=== PATIENT | female | born 1985 | race Caucasian/White ===

== ENCOUNTER 2018-02-22 12:43 | Outpatient (CLI) | payer BC ==
[~2018-02-22] VITALS: Ht 160 cm; Wt 62.7 kg
[2018-02-22 13:13] VITALS: BP 110/68
== END 2018-02-22 13:35 | disposition home or self-care (01) ==
LOC: LDOP 12:43
PROVIDERS: ATTEND Obstetrics & Gynecology Gynecology
DX: O26.893 Other specified pregnancy related conditions, third trimester (principal); Z3A.29 29 weeks gestation of pregnancy; W19.XXXA Unspecified fall, initial encounter; Y93.89 Activity, other specified; Y92.89 Other specified places as the place of occurrence of the external cause; Y99.8 Other external cause status
CPT/HCPCS: 59025; 99201; G0463

== ENCOUNTER 2018-03-28 16:30 | Outpatient (CLI) | payer BC ==
[~2018-03-28] VITALS: Ht 160 cm; Wt 64.4 kg
[2018-03-28] MEDS ORDERED: ONDANSETRON 2MG/ML, 2ML IVPush ONE (17:30)
[2018-03-28] MEDS ORDERED: PLEASE ENTER HEIGHT AND WEIGHT MC SCH (17:30)
[2018-03-28] MEDS ORDERED: LACTATED RINGERS 1,000 ML IVBOLUS ONE ×2 (17:30→19:30)
[2018-03-28] MEDS ORDERED: ONDANSETRON 2MG/ML, 2ML ONE (17:50)
[2018-03-28 18:14] LABS: BASOPHILS % (AUTO) 0 % (0-1); EOSINOPHILS % (AUTO) 0 % (1-7); LYMPHOCYTES # (AUTO) 0.46 x10^3/uL (1-3.4); LYMPHOCYTES % (AUTO) 4 % (22-44); MD NO; MEAN CORPUSCULAR HEMOGLOBIN 31.6 pg (27.0-34.8); MEAN CORPUSCULAR HGB CONC 33.7 g/dL (32.4-35.8); MEAN CORPUSCULAR VOLUME 93.6 fL (80-100); MEAN PLATELET VOLUME 10.6 fL (7.4-10.4); MONOCYTES # (AUTO) 0.49 x10^3/uL (0.2-0.8); MONOCYTES % (AUTO) 5 % (2-9); NEUTROPHILS # (AUTO) 9.32 x10^3/uL (1.8-6.8); NEUTROPHILS % (AUTO) 91 % (42-75); PLATELET COUNT 178 x10^3/uL (130-400); RED BLOOD COUNT 4.13 x10^6/uL (3.82-5.3); RED CELL DISTRIBUTION WIDTH 12.9 % (9.6-15.2)
[2018-03-28 18:27] LABS: ALANINE AMINOTRANSFERASE 21 U/L (12-78); ALBUMIN 2.6 g/dL (3.4-5.0); ANION GAP 5 mmol/L (5-15); CALCIUM 8.3 mg/dL (8.5-10.1); CHLORIDE 104 mmol/L (98-107); CREATININE 0.87 mg/dL (0.55-1.02)
[2018-03-28 18:29] LABS: ALKALINE PHOSPHATASE 105 U/L (45-117); BILIRUBIN,TOTAL 0.3 mg/dL (0.2-1.0); TOTAL PROTEIN 6.6 g/dL (6.4-8.2)
[2018-03-28 18:49] VITALS: BP 109/66
[2018-03-28 18:51] LABS: MICROSCOPIC INDICATED
== END 2018-03-28 20:30 | disposition home or self-care (01) ==
LOC: LDOP 16:30
PROVIDERS: ATTEND Obstetrics & Gynecology Gynecology
DX: O21.2 Late vomiting of pregnancy (principal); O26.893 Other specified pregnancy related conditions, third trimester; R19.7 Diarrhea, unspecified; O62.9 Abnormality of forces of labor, unspecified; Z3A.33 33 weeks gestation of pregnancy
CPT/HCPCS: 36415; 59025; 76815; 80053; 81001; 83690; 85025; 96360; 96361; 99211; J2405; J7120; 96374; G0463

== ENCOUNTER 2018-05-18 04:23 | Inpatient (IN) | payer BC ==
[~2018-05-18] VITALS: Ht 160 cm; Wt 65.8 kg
[2018-05-18 05:06] VITALS: BP 113/74
[2018-05-18] MEDS ORDERED: OXYTOCIN 30U/ 0.9% NaCL 500ML 500 ML IV ONE (06:28)
[2018-05-18] MEDS: D5%-LACTATED RINGERS 1,000 ML IV SCH ×3 (06:28→22:28)
[2018-05-18] MEDS ORDERED: ONDANSETRON 2MG/ML, 2ML IVPush PRN ×3 (06:30→20:30)
[2018-05-18] MEDS ORDERED: CALCIUM CARBONATE 500 MG TAB.CHEW PO PRN ×2 (06:30→19:00)
[2018-05-18] MEDS ORDERED: FENTANYL PF 100 MCG/2ML IV PRN ×2 (06:30→19:00)
[2018-05-18] MEDS ORDERED: LACTATED RINGERS 1,000 ML IV SCH ×2 (06:31→07:55)
[2018-05-18] MEDS ORDERED: NEWBORN KIT ONE (06:31)
[2018-05-18] MEDS ORDERED: FENTANYL/BUPIV./NS/PF 250 ML EPIDCONT SCH ×2 (06:31→07:55)
[2018-05-18] MEDS ORDERED: FENTANYL PF 100 MCG/2ML ONE ×5 (06:32→17:58)
[2018-05-18] MEDS ORDERED: OXYTOCIN 30U/ 0.9% NaCL 500ML 500 ML ONE (06:32)
[2018-05-18] MEDS: LACTATED RINGERS 1,000 ML IV SCH ×5 (06:36→22:28)
[2018-05-18] MEDS ORDERED: FENTANYL PF 500 MCG, BUPIVACAINE/PF 0.5%, 30ML 62.5 ML in SODIUM CHLORIDE 0.9% 177.5 ML EPIDCONT SCH (07:00)
[2018-05-18] MEDS ORDERED: LACTATED RINGERS 1,000 ML IVBOLUS PRN ×2 (07:00→08:00)
[2018-05-18 07:09] LABS: BASOPHILS # (AUTO) 0.08 x10^3/uL (0-0.1); BASOPHILS % (AUTO) 1 % (0-1); EOSINOPHILS % (AUTO) 0 % (1-7); LYMPHOCYTES # (AUTO) 1.31 x10^3/uL (1-3.4); LYMPHOCYTES % (AUTO) 11 % (22-44); MD NO; MEAN CORPUSCULAR HEMOGLOBIN 31.1 pg (27.0-34.8); MEAN CORPUSCULAR HGB CONC 33.5 g/dL (32.4-35.8); MEAN PLATELET VOLUME 11.1 fL (7.4-10.4); MONOCYTES % (AUTO) 4 % (2-9); NEUTROPHILS # (AUTO) 9.65 x10^3/uL (1.8-6.8); NEUTROPHILS % (AUTO) 84 % (42-75); PLATELET COUNT 177 x10^3/uL (130-400); RED BLOOD COUNT 4.14 x10^6/uL (3.82-5.3); RED CELL DISTRIBUTION WIDTH 14.2 % (9.6-15.2)
[2018-05-18] MEDS ORDERED: EPHEDRINE 50 MG/ML, 1ML IVPush PRN ×3 (08:00→20:30)
[2018-05-18] MEDS ORDERED: NALOXONE 0.4 MG/ML, 1ML IVPush PRN (08:00)
[2018-05-18] MEDS: FENTANYL PF 100 MCG/2ML IVPush PRN ×2 (08:25→10:05)
[2018-05-18] MEDS ORDERED: BUPIVACAINE 0.25% ONE (10:18)
[2018-05-18] MEDS ORDERED: TERBUTALINE 1 MG/ML, 1ML ONE (12:55)
[2018-05-18] MEDS ORDERED: SODIUM CITRATE/CITRIC ACID 30 ML UDC ONE (16:55)
[2018-05-18] MEDS ORDERED: METOCLOPRAMIDE 5 MG/ML, 2ML ONE (16:55)
[2018-05-18] MEDS ORDERED: LIDOCAINE-MPF 2% ,5ML ONE (16:55)
[2018-05-18] MEDS ORDERED: SODIUM BICARBONATE 4.0%, 5ML ONE (16:55)
[2018-05-18] MEDS ORDERED: KETOROLAC 30 MG/1 ML ONE (17:26)
[2018-05-18] MEDS ORDERED: ONDANSETRON 2MG/ML, 2ML ONE (17:26)
[2018-05-18] MEDS ORDERED: SUCCINYLCHOLINE 20 MG/ML, 10ML ONE (17:26)
[2018-05-18] MEDS ORDERED: CEFAZOLIN 1,000 MG ONE (17:26)
[2018-05-18] MEDS ORDERED: DEXAMETHASONE 4 MG/ML, 1ML ONE (17:26)
[2018-05-18] MEDS ORDERED: EPHEDRINE 50 MG/ML, 1ML ONE (17:26)
[2018-05-18] MEDS ORDERED: PROPOFOL 10 MG/ML, 20ML ONE (17:26)
[2018-05-18] MEDS ORDERED: OXYTOCIN 10 UNITS/ML, 1ML ONE (17:26)
[2018-05-18] MEDS ORDERED: PHENYLEPHRINE 10 MG/ML ONE (17:26)
[2018-05-18] MEDS ORDERED: morphine SULFATE/PF 0.5 MG/ML, 10ML ONE (17:59)
[2018-05-18] MEDS: OXYTOCIN 30U/ 0.9% NaCL 500ML 500 ML IV SCH (18:35)
[2018-05-18] MEDS ORDERED: MISOPROSTOL 200 MCG TABLET PR PRN (19:00)
[2018-05-18] MEDS ORDERED: PROMETHAZINE 25 MG/ML, 1ML IV PRN (19:00)
[2018-05-18] MEDS ORDERED: OXYcodone/APAP 5/325MG TABLET PO PRN ×2 (19:00→20:30)
[2018-05-18] MEDS ORDERED: HYDROmorphone 2 MG/ML, 1ML IVPush PRN (19:00)
[2018-05-18] MEDS ORDERED: DIPH,PERTUSS(ACELL),TET VAC/PF NC IM-VACC PRN (19:00)
[2018-05-18] MEDS ORDERED: HYDROcodone/APAP 7.5-325MG/15ML UDC PO PRN (19:00)
[2018-05-18] MEDS ORDERED: OXYcodone IR 5MG TABLET PO PRN (19:00)
[2018-05-18] MEDS ORDERED: OXYcodone 5 MG/5 ML ORAL.SOL UDC PO PRN (19:00)
[2018-05-18] MEDS ORDERED: MORPHINE SULFATE 4 MG/ML, 1ML IVPush PRN (19:00)
[2018-05-18] MEDS ORDERED: MIDAZOLAM 1 MG/ML, 2ML IV PRN (19:00)
[2018-05-18] MEDS ORDERED: ONDANSETRON 2MG/ML, 2ML IV PRN (19:00)
[2018-05-18] MEDS ORDERED: MEASLES,MUMPS&RUBELLA VACC/PF 0.5 ML SQ-VACC PRN (19:00)
[2018-05-18] MEDS ORDERED: MEPERIDINE/PF 25MG/0.5ML IVPush PRN (19:00)
[2018-05-18] MEDS ORDERED: IBUPROFEN 600 MG TABLET PO PRN (19:00)
[2018-05-18] MEDS ORDERED: RHOGAM FROM BLOOD BANK 1 NOTE EA IM/IV ONE (19:00)
[2018-05-18] MEDS ORDERED: hydrALAzine 20 MG/ML, 1ML IV PRN (19:00)
[2018-05-18] MEDS ORDERED: ALBUTEROL SULFATE 2.5 MG/3 ML NPPB PRN (19:00)
[2018-05-18] MEDS ORDERED: LABETALOL 5MG/ML, 20ML IV PRN (19:00)
[2018-05-18] MEDS ORDERED: SIMETHICONE 80 MG CHEW TAB PO PRN (19:00)
[2018-05-18 20:00] VITALS: BP 111/69
[2018-05-18] MEDS ORDERED: DIPHENHYDRAMINE 50 MG/ML, 1ML IV PRN (20:30)
[2018-05-18] MEDS ORDERED: NO SEDATIVES, TRANQUILIZERS OR ANTIEMETICS XX SCH (20:30)
[2018-05-18] MEDS ORDERED: FENTANYL PF 100 MCG/2ML IVPush PRN (20:30)
[2018-05-18] MEDS ORDERED: HYDROmorphone 1 MG/ML, 1ML IVPush PRN (20:30)
[2018-05-18] MEDS ORDERED: NALOXONE 0.4 MG/ML, 1ML IV PRN (20:30)
[2018-05-19] VITALS: BP 102/65
[2018-05-19] MEDS: KETOROLAC 30 MG/1 ML IV SCH ×5 (00:03→19:29)
[2018-05-19] MEDS: LACTATED RINGERS 1,000 ML IV SCH ×8 (02:35→22:28)
[2018-05-19 02:55] LABS: BASOPHILS % (AUTO) 0 % (0-1); EOSINOPHILS % (AUTO) 0 % (1-7); LYMPHOCYTES # (AUTO) 1.03 x10^3/uL (1-3.4); LYMPHOCYTES % (AUTO) 6 % (22-44); MD NO; MEAN CORPUSCULAR HEMOGLOBIN 31.7 pg (27.0-34.8); MEAN CORPUSCULAR HGB CONC 33.7 g/dL (32.4-35.8); MEAN CORPUSCULAR VOLUME 94.2 fL (80-100); MEAN PLATELET VOLUME 11.1 fL (7.4-10.4); MONOCYTES % (AUTO) 5 % (2-9); NEUTROPHILS # (AUTO) 14.79 x10^3/uL (1.8-6.8); NEUTROPHILS % (AUTO) 89 % (42-75); PLATELET COUNT 150 x10^3/uL (130-400); RED BLOOD COUNT 3.73 x10^6/uL (3.82-5.3); RED CELL DISTRIBUTION WIDTH 14.2 % (9.6-15.2)
[2018-05-19 04:00] VITALS: BP 108/64
[2018-05-19] MEDS: OXYTOCIN 30U/ 0.9% NaCL 500ML 500 ML IV SCH ×2 (04:35→14:35)
[2018-05-19] MEDS: D5%-LACTATED RINGERS 1,000 ML IV SCH ×3 (06:28→22:28)
[2018-05-19 08:00] VITALS: BP 106/67
[2018-05-19] MEDS: DOCUSATE 100 MG CAPSULE PO PRN (10:23)
[2018-05-19] MEDS: PRENATAL VIT/IRON/FA 1 EACH TABLET PO SCH (10:23)
[2018-05-19 12:32] VITALS: BP 102/68
[2018-05-19 15:45] VITALS: BP 113/68
[2018-05-19 22:00] VITALS: BP 123/71
[2018-05-20] MEDS: LACTATED RINGERS 1,000 ML IV SCH ×3 (00:35→06:28)
[2018-05-20] MEDS: OXYTOCIN 30U/ 0.9% NaCL 500ML 500 ML IV SCH (00:35)
[2018-05-20] MEDS: KETOROLAC 30 MG/1 ML IV SCH ×2 (02:11→09:08)
[2018-05-20] MEDS: D5%-LACTATED RINGERS 1,000 ML IV SCH (06:28)
[2018-05-20 08:45] VITALS: BP 118/79
[2018-05-20] MEDS ORDERED: IBUP-1222 PO (08:52)
[2018-05-20] MEDS ORDERED: OXYC-302 PO (08:52)
[2018-05-20] MEDS: PRENATAL VIT/IRON/FA 1 EACH TABLET PO SCH (09:00)
[2018-05-20] MEDS: DOCUSATE 100 MG CAPSULE PO PRN (09:08)
== END 2018-05-20 14:40 | disposition home or self-care (01) | DRG 788 ==
LOC: LDOP 04:23 → LDIP 06:35 → 2NW 20:05
PROVIDERS: ADMIT Obstetrics & Gynecology Gynecology; ATTEND Obstetrics & Gynecology Gynecology
PROC: 10D00Z1 Extraction of Products of Conception, Low, Open Approach (ICD-10-PCS; principal; 2018-05-18)
PROC: 30233S1 Transfusion of Nonautologous Globulin into Peripheral Vein, Percutaneous Approach (ICD-10-PCS; 2018-05-19)
DX: O69.1XX0 Labor and delivery complicated by cord around neck, with compression, not applicable or unspecified (principal); O76 Abnormality in fetal heart rate and rhythm complicating labor and delivery; O77.0 Labor and delivery complicated by meconium in amniotic fluid; O99.284 Endocrine, nutritional and metabolic diseases complicating childbirth; E89.0 Postprocedural hypothyroidism; Z37.0 Single live birth; Z3A.40 40 weeks gestation of pregnancy
CPT/HCPCS: 36415; J2790; 82803; 85025; 85461; 86850; 86900; G0378; J0690; J1100; J1885; J2274; J2405; J2704; J3010; J3490; J0330; J2370; J2590; J2765; J7050; J7120

== ENCOUNTER → 2020-12-18 | Outpatient (CLI) | payer BC | END | disposition home or self-care (01) | LOC: COVVAC 15:16 | PROVIDERS: ATTEND Student in an Organized Health Care Education/Training Program | DX: Z20.822 Contact with and (suspected) exposure to COVID-19 (principal) ==